=== PATIENT | female | born 1975 | race Caucasian/White ===

== ENCOUNTER 2017-11-10 08:15 | Day surgery (SDC) ==
[2017-11-10] MEDS ORDERED: BRIMONIDINE TARTRATE 0.2% OPTH SOL OP PRN (08:45)
[2017-11-10] MEDS ORDERED: LIDOCAINE 1% 20 ML MDV ID STA (08:45)
[2017-11-10] MEDS ORDERED: DEX-MOXI-KETOR OPTH INJ 1/0.5/0.4 MG/ML IO ONE (08:45)
[2017-11-10] MEDS ORDERED: LIDOCAINE 1%/PHENYLEPHRINE 1.5% BSS (SURGERY) INTRAOCULA ONE (08:45)
[2017-11-10] MEDS ORDERED: ZOFRAN 4 MG/2 ML IVP ONE (08:45)
[2017-11-10] MEDS ORDERED: BSS WITH EPINEPHRINE OP ONE (08:45)
[2017-11-10] MEDS: TETRACAINE 0.5% UNIT-DOSE OP PRN ×3 (08:46→10:05)
[2017-11-10] MEDS: BETADINE OPTH PREP OP PRN ×2 (08:46→09:40)
[2017-11-10] MEDS: CYCLOGYL 2% OPTH OP PRN ×3 (08:47→08:57)
[2017-11-10] MEDS ORDERED: VERSED ONE (10:00)
[2017-11-10] MEDS ORDERED: SUBLIMAZE ONE (10:00)
[2017-11-10 13:33] VITALS: BP 128/56
[2017-11-10 13:49] VITALS: TEMP 98.4
== END 2017-11-10 10:45 | disposition home or self-care (01) ==
LOC: SURG 08:15
PROVIDERS: ATTEND Ophthalmology
DX: H52.03 Hypermetropia, bilateral (principal)

== ENCOUNTER 2017-11-18 06:54 | Day surgery (SDC) ==
[2017-11-18] MEDS: BETADINE OPTH PREP OP PRN ×2 (07:05→08:24)
[2017-11-18] MEDS: TETRACAINE 0.5% UNIT-DOSE OP PRN ×2 (07:05→08:24)
[2017-11-18] MEDS: CYCLOGYL 2% OPTH OP PRN ×3 (07:06→07:16)
[2017-11-18] MEDS ORDERED: BRIMONIDINE TARTRATE 0.2% OPTH SOL OP PRN (07:23)
[2017-11-18] MEDS ORDERED: DEX-MOXI-KETOR OPTH INJ 1/0.5/0.4 MG/ML IO ONE (07:23)
[2017-11-18] MEDS ORDERED: LIDOCAINE 1% 20 ML MDV ID STA (07:23)
[2017-11-18] MEDS ORDERED: ZOFRAN 4 MG/2 ML IVP ONE (07:23)
[2017-11-18] MEDS ORDERED: LIDOCAINE 1%/PHENYLEPHRINE 1.5% BSS (SURGERY) INTRAOCULA ONE (07:23)
[2017-11-18] MEDS ORDERED: BSS WITH EPINEPHRINE OP ONE (07:23)
[2017-11-18] MEDS ORDERED: TORADOL ONE (08:40)
[2017-11-18] MEDS ORDERED: VERSED ONE (08:40)
[2017-11-18] MEDS ORDERED: SUBLIMAZE ONE (08:40)
[2017-11-18 11:01] VITALS: TEMP 97.7
[2017-11-18 16:29] VITALS: BP 129/56
== END 2017-11-18 09:30 | disposition home or self-care (01) ==
LOC: SURG 06:54
PROVIDERS: ATTEND Ophthalmology
DX: H52.03 Hypermetropia, bilateral (principal)
CPT/HCPCS: 36415; 84703